=== PATIENT | female | born 1985 | race Native Hawaiian/Other Pacific Islander ===

== ENCOUNTER 2016-12-14 20:56 | Emergency (ER) | payer OTHER ==
[2016-12-14 21:35] VITALS: BMI 22.4
--- NOTE | 2016-12-14 23:17 | OBHP ---
Datetime: 12/14/2016 22:48 IP Adm Impression: Term, intrauterine IP Admit Plan: Observation/Evaluation; Discharge home Admit Comment, IP Provider: 31yo g1 edc 12/17 presents @ 39.4wk w/ c/o ctxs since 12noon with increase d intensity since 20:00. She denies decreased fm, srom or vag bleeding. ob hx sig for FGR pmhx _ pshx: deneis allerg: pcn medic: pnv shx: denies etoh, drugs or tobacco i: 39. 4wks false labor p: labor precautions kick counts d/c home f/u with dr everett on Mon- 2days pt d/w dr everett Pelvic Type - PN: Adequate Extremities - PN: Normal Abdomen - PN: Normal Back - PN: Normal Breast - PN: Not Done Heart - PN: Normal Neurologic - PN: Normal HEENT - PN: Normal General - PN: Normal Presentation-Admit: Vertex FHR - Baseline A Provider: 140 Membranes, Provider: Intact Contraction Comments Provider: 7-10 Vital Signs Provider: Within Normal Limits IP Chief Complaint: Uterine contractions NICHD Variability Prov Fetus A: Moderate 6-25bpm NICHD Accel Fetus A IP Provider: 15X15 FHR Category Provider Fetus A: Category I NICHD Decel Fetus A IP Provider: None Dilatation, Provider: 1 Genitourinary Exam: Normal
== END 2016-12-14 22:55 | disposition home or self-care (01) ==
LOC: H.EROB2 20:56
DX: O47.1 False labor at or after 37 completed weeks of gestation (principal); Z3A.39 39 weeks gestation of pregnancy

== ENCOUNTER 2016-12-19 05:50 | Inpatient (IN) | payer OTHER ==
[2016-12-19 06:33] VITALS: BMI 22.3
[2016-12-19] MEDS: Lactated Ringer's 1,000 ML IV SCH ×2 (06:45→08:03)
--- NOTE | 2016-12-19 06:50 | OBHP ---
Datetime: 12/19/2016 06:41 IP Adm Impression: Term, intrauterine IP Admit Plan: Admit to unit; Initiate labor protocol Admit Comment, IP Provider: The patient was seen with the resident I agree with the note admit for d elivery, adequate pelvis vertex presentation Pelvic Type - PN: Adequate Extremities - PN: Normal Abdomen - PN: Normal Back - PN: Normal Breast - PN: Normal Lungs - PN: Normal Heart - PN: Normal Thyroid - PN: Normal Neurologic - PN: Normal HEENT - PN: Normal General - PN: Normal EGA AdmitDate IP: 40.2 IP Chief Complaint: Uterine contractions Genitourinary Exam: Normal DTRs - PN: Normal
--- NOTE | 2016-12-19 06:50 | OBADHP ---
Datetime: 12/19/2016 06:41 Admit Comment, IP Provider: The patient was seen with the resident I agree with the note admit for d elivery, adequate pelvis vertex presentation Pelvic Type - PN: Adequate Extremities - PN: Normal Abdomen - PN: Normal Back - PN: Normal Breast - PN: Normal Lungs - PN: Normal Heart - PN: Normal Thyroid - PN: Normal Neurologic - PN: Normal HEENT - PN: Normal General - PN: Normal IP Chief Complaint: Uterine contractions Genitourinary Exam: Normal DTRs - PN: Normal EGA AdmitDate IP: 40.2 IP Adm Impression: Term, intrauterine IP Admit Plan: Admit to unit; Initiate labor protocol Datetime: 12/14/2016 22:48 Presentation-Admit: Vertex FHR - Baseline A Provider: 140 Membranes, Provider: Intact Contraction Comments Provider: 7-10 Vital Signs Provider: Within Normal Limits NICHD Variability Prov Fetus A: Moderate 6-25bpm NICHD Accel Fetus A IP Provider: 15X15 FHR Category Provider Fetus A: Category I NICHD Decel Fetus A IP Provider: None Dilatation, Provider: 1
[2016-12-19 07:18] LABS: BASO # 0.1 K/uL (0.0-0.2); BASO % 0.6 % (0.0-2.0); EOS % 0.4 % (0.0-4.0); LYMPH # 1.5 K/uL (1.0-4.3); MEAN CELL VOLUME 95.2 fl (81.0-99.0); MEAN CORPUSCULAR HEMOGLOBIN 32.4 pg (27.0-31.0); MEAN PLATELET VOLUME 8.6 fl (7.2-11.7); MONO # 0.8 K/uL (0.0-0.8); MONO % 6.8 % (0.0-10.0); NEUT # 8.9 K/uL (1.8-7.0); NEUT % 79.2 % (50.0-75.0); RED CELL DISTRIBUTION WIDTH 13.1 % (11.5-14.5); WHITE BLOOD COUNT 11.2 K/uL (4.8-10.8)
[2016-12-19] MEDS ORDERED: Fentanyl/Bupivacaine HCl 250 ML EPI ONE (08:13)
[2016-12-19] MEDS ORDERED: Phenylephrine 10 mg/ml Inj ONE (08:38)
--- NOTE | 2016-12-19 08:43 | OBADHP ---
Datetime: 12/19/2016 08:37 IP Adm Impression Other: IUGR had declined induction IP Admit Plan Other: start antibiotics for GBS coverage Admit Comment, IP Provider: start Clinda for GBS coveratge and epidural evealuation Extremities - PN: Normal Abdomen - PN: Abnormal Back - PN: Normal Breast - PN: Normal Lungs - PN: Normal Heart - PN: Normal Thyroid - PN: Normal Neurologic - PN: Normal HEENT - PN: Normal General - PN: Normal Presentation-Admit: Cephalic FHR - Baseline A Provider: 140's Membranes, Provider: Intact Contraction Comments Provider: q3-5 mins Comments, ACOG Physical Exam: Abd gravid NT, ext no calf tenderness Gestation - Est Wks by US: 40+ Vital Signs Provider: Reviewed IP Chief Complaint: Uterine contractions NICHD Variability Prov Fetus A: Moderate 6-25bpm NICHD Accel Fetus A IP Provider: Prolonged NICHD Decel Fetus A IP Provider: None Dilatation, Provider: 3cm Effacement, Provider: 80% Genitourinary Exam: Normal DTRs - PN: Normal EGA AdmitDate IP: 40.2 IP Adm Impression: Term, intrauterine IP Admit Plan: Admit to unit; Initiate labor protocol
[2016-12-19] MEDS ORDERED: Clindamycin 600 MG in Sodium Chloride 0.9% 100 ML IVPB SCH (09:00)
[2016-12-19] MEDS ORDERED: Oxytocin 30 units/LR 500ML 30 U/500 ML BAG IV ONE (10:37)
[2016-12-19 11:16] VITALS: BP 114/65; PULSE 72; RESP 18; TEMP 98.7; O2SAT 99
[2016-12-19] MEDS ORDERED: Lactated Ringer's 1,000 ML IV SCH ×2 (13:00→19:41)
--- NOTE | 2016-12-19 14:48 | OBDS ---
DELIVERY PERSONNEL Delivery Doctor: Alicia Gaffney MD Housing Installer: Bronwyn Cornella RN MATERNAL INFORMATION Delivery Anesthesia: Epidural Estimated Blood Loss (ml): 250cc Maternal Complications: None Provider Comments: Delived a living baby boy appears term AGA, cried spontaneously, 9/9 Peds c alled to check baby for hx of IUGR, AF clear, placenta complete and intact. Episiotomy repaired as a darcy. Uterus contracted well, tolerated procedure well no complications Rectal done no defects. epi siotomy had been repaired as above without any complication LABOR SUMMARY EDC: 12/17/2016 00:00 No. Babies in Womb: 1 Attempted: No Labor Anesthesia: Epidural LABOR INFORMATION Reason for Induction: Not Applicable Onset of Labor: 12/19/2016 03:00 Complete Dilatation: 12/19/2016 13:30 Oxytocin: Augmentation Group B Beta Strep: Positive Antibiotics # of Doses: 1 Antibiotics Time of Last Dose: 0830 Steroids Given: None Reason Steroids Not Administered: Not Applicable MEMBRANES Membranes Rupture Method: Artificial Rupture of Membranes: 12/19/2016 12:33 Amniotic Fluid Color: Clear Amniotic Fluid Amount: Moderate Amniotic Fluid Odor: None STAGES OF LABOR Stage 1 hrs: 10 Stage 1 min: 30 VAGINAL DELIVERY Episiotomy: Median Laceration Extension: N/A Laceration Type: None Laceration Repair: Not Applicable Laceration Repair Note: medial 1-2nd dg episiotomy repaired with 2-0 chromic without any complicati on. Sponge Count Correct: Yes Sharps Count Correct: Yes Count Comment: count correct CSECTION DELIVERY Primary Indication: N/A Secondary Indication: N/A CSection Incision: N/A BABY A INFORMATION Forceps: N/A Vacuum Extraction: N/A Shoulder Dystocia : No PRESENTATION/POSITION BABY A Presentation: Cephalic Cephalic Presentation: Vertex Vertex Position: Left Occipital Anterior Breech Presentation: N/A INFANT INFORMATION BABY A Gestational Age at Delivery: 40+2 Gestational Status: Term IDENTIFICATION/MEDS BABY A ID Band Number: [id number]
[2016-12-19] MEDS ORDERED: Oxycodone/Acetaminophen 5/325 mg Tab PO PRN ×2 (14:49→19:41)
[2016-12-19] MEDS ORDERED: Oxytocin 30 units/LR 500ML 30 U/500 ML BAG IV SCH (14:49)
[2016-12-19] MEDS ORDERED: Benzocaine/Menthol SPRAY TOP PRN ×2 (14:49→19:41)
[2016-12-20] MEDS ORDERED: Clindamycin 600 MG in Sodium Chloride 0.9% 100 ML IVPB SCH (01:00)
[2016-12-20 06:41] LABS: HEMATOCRIT 32.4 % (34.0-47.0); MEAN CELL VOLUME 96.4 fl (81.0-99.0); MEAN CORPUSCULAR HEMOGLOBIN 32.1 pg (27.0-31.0); MEAN CORPUSCULAR HGB CONC 33.3 g/dL (33.0-37.0); RED CELL DISTRIBUTION WIDTH 13.4 % (11.5-14.5); WHITE BLOOD COUNT 12.6 K/uL (4.8-10.8)
--- NOTE | 2016-12-20 08:27 | OBPPN ---
Datetime: 12/20/2016 08:22 PP Pain Prov: Within normal limits PP Pain Prov comment: no SOB, chest pains or leg pains PP Nausea Prov: Denies PP Flatus Prov: Yes PP Breasts Prov: Normal PP Lungs Prov: Normal PP Abdomen/Uterus Prov: Abnormal PP Lochia Prov: Normal PP Vulva/Perineum Prov: Abnormal PP CVA Tenderness Prov: Normal PP Extremities Prov: Normal PP C/S Incision Prov: Not Applicable PP Progress Prov: Normal PP Comments Phys Exam Prov: abd soft ND depressible fundus firm below the umb Perineum repaired Ext no calf tenderness PP Impression Prov: Normal progression PP Plan Prov: Continue present management PP Progress Note Prov: CBC reviewed will order platellet count mannual. Continue PP care IP PP Procedures: None
--- NOTE | 2016-12-21 13:18 | OBPPN ---
Datetime: 12/21/2016 13:16 PP Pain Prov: Within normal limits PP Nausea Prov: Denies PP Flatus Prov: Yes PP BM Prov: Yes PP Breasts Prov: Normal PP Heart Prov: Normal PP Lungs Prov: Normal PP Abdomen/Uterus Prov: Normal PP Lochia Prov: Normal PP Vulva/Perineum Prov: Normal PP CVA Tenderness Prov: Normal PP Extremities Prov: Normal PP Progress Prov: Normal PP Impression Prov: Normal progression PP Plan Prov: Continue present management PP Progress Note Prov: stable ppd2 dc home today IP PP Procedures: None Vital Signs Provider PP: Reviewed; Within Normal Limits
--- NOTE | 2016-12-21 13:20 | OBDCSUM ---
Datetime: 12/21/2016 10:46 Discharged to, Provider: Home Follow up at, Provider: Dr Gaffney Disch Instr Activity: Normal activity; May be up to bathroom; May be up for meals; May Shower Disch Instr Diet: Regular Discharge Instructions, Provider: Routine instructions given Discharge Diagnosis, Provider: Term Delivered Discharge Time: 12/21/2016 10:47 Follow up in weeks, Provider: 4-6 weeks Disch Referrals: None Disch Activity Restrictions: No exercising; No lifting; No driving; Minimize walking; Minimize stair -climbing; No sexual activity; Nothing in vagina - Godwin, tampons, douche Contraception after Delivery: Undecided Datetime: 12/14/2016 22:48 Disch Activity Restrictions: Minimize stair-climbing; No sexual activity; Nothing in vagina - Interc ourse, tampons, douche
== END 2016-12-21 16:00 | disposition home or self-care (01) | DRG 775 ==
LOC: H.EROB2 05:50 → H.L&D 06:36 → H.OB/GYN 19:45
PROVIDERS: ADMIT Specialist; ATTEND Specialist
PROC: 0W8NXZZ Division of Female Perineum, External Approach (ICD-10-PCS; principal; 2016-12-19)
PROC: 10E0XZZ Delivery of Products of Conception, External Approach (ICD-10-PCS; 2016-12-19)
PROC: 4A1HXCZ Monitoring of Products of Conception, Cardiac Rate, External Approach (ICD-10-PCS; 2016-12-19)
DX: O36.5930 Maternal care for other known or suspected poor fetal growth, third trimester, not applicable or unspecified (principal); O48.0 Post-term pregnancy; Z37.0 Single live birth; Z3A.40 40 weeks gestation of pregnancy